=== PATIENT | male | born 1960 | race Two or more races ===

== ENCOUNTER 2018-01-21 09:32 | Outpatient (CLI) | payer OTHER | END 2018-01-21 09:43 | disposition home or self-care (01) | LOC: SONOGRAMA 09:32 | DX: M25.572 Pain in left ankle and joints of left foot (principal) ==

== ENCOUNTER 2018-09-27 09:59 | Emergency (ER) | payer OTHER ==
[~2018-09-27] VITALS: Ht 185.4 cm; Wt 99.8 kg
[2018-09-27] MEDS ORDERED: TENORMIN25 MG (10:07)
== END 2018-09-27 13:45 | disposition home or self-care (01) ==
LOC: ER 09:59
DX: M94.0 Chondrocostal junction syndrome [Tietze] (principal)

== ENCOUNTER 2019-11-05 20:06 | Emergency (ER) | payer OTHER ==
[~2019-11-05] VITALS: Ht 185.4 cm; Wt 99.8 kg
[~2019-11-05 20:06] MED LIST: TENORMIN25 MG
[2019-11-05] MEDS ORDERED: TAMS0.4C PO (20:18)
== END 2019-11-05 23:11 | disposition home or self-care (01) ==
LOC: ER 20:06
DX: R10.31 Right lower quadrant pain (principal)